=== PATIENT | female | born 1935 | race Caucasian/White ===

== ENCOUNTER 2018-07-11 10:52 | Outpatient (CLI) | payer OTHER ==
[~2018-07-11] VITALS: Ht 162.6 cm; Wt 81.6 kg
[2018-07-11 12:11] LABS: BASOPHILS % (AUTO) 0.5 % (0-1); EOSINOPHILS # (AUTO) 0.2 X10'3 (0-0.9); EOSINOPHILS % (AUTO) 2.2 % (0-6); MEAN CORPUSCULAR HEMOGLOBIN 28.8 PG (27.0-31.0); MEAN CORPUSCULAR HGB CONC 33.9 % (33.0-36.5); MEAN CORPUSCULAR VOLUME 85.2 FL (78-98); MEAN PLATELET VOLUME 7.7 FL (7.4-10.4); MONOCYTES # (AUTO) 0.5 X10'3 (0-0.9); MONOCYTES % (AUTO) 6.7 % (2-12); NEUTROPHILS # (AUTO) 4.4 X10'3 (1.8-7.7); NEUTROPHILS % (AUTO) 62.6 % (42-75); PRE OP HEMOGLOBIN 14.6 g/dL (12.0-16.0); PRE OP PLATELET COUNT 231 X10'3 (140-440); RED BLOOD COUNT 5.04 X10'6 (4.20-5.60)
[2018-07-11 12:24] LABS: ALBUMIN 3.5 G/DL (3.4-5.0); ALBUMIN/GLOBULIN RATIO 1.1 (1.1-1.5); ALKALINE PHOSPHATASE 73 IU/L (46-116); BLOOD UREA NITROGEN 15 MG/DL (7-18); BUN/CREATININE RATIO 15.3 (6.6-38.0); CALCIUM 9.1 MG/DL (8.5-10.1); CHLORIDE 100 MMOL/L (99-107); CREATININE 0.98 MG/DL (0.40-0.90); PRE OP ALT 21 U/L (30-65); PRE OP ANION GAP 5 (8-16); PRE OP AST 18 U/L (10-37); PRE OP BILIRUB, TOTAL 0.4 MG/DL (0.0-1.0); PRE OP GLUCOSE 100 MG/DL (70-104); PRE OP POTASSIUM 3.9 MMOL/L (3.4-5.1); PRE OP SODIUM 133 MMOL/L (135-145); TOTAL CARBON DIOXIDE 27.7 MMOL/L (24-32); TOTAL PROTEIN 6.7 G/DL (6.4-8.2); eGFR 55 ML/MIN
[2018-07-11] MEDS ORDERED: FAMO-128 PO (12:41)
[2018-07-11] MEDS ORDERED: HYDR25TA4 PO (12:41)
[2018-07-11] MEDS ORDERED: SIME62.5 PO (12:41)
[2018-07-15] MEDS ORDERED: ringers solution, lacted 1,000 ML IV SCH (05:00)
[2018-07-15] MEDS ORDERED: famotidine 20mg tablet PO ONE (05:30)
[2018-07-15] MEDS ORDERED: Cefazolin 2GM/50ML dext iso,osmotic IVPB IV ONE (05:30)
== END 2018-07-11 23:59 | disposition home or self-care (01) ==
LOC: PRE-OP 10:52 → EDSTATUS 07-15 14:15
PROVIDERS: ATTEND Surgery
DX: Z01.812 Encounter for preprocedural laboratory examination (principal); K64.4 Residual hemorrhoidal skin tags; Z13.6 Encounter for screening for cardiovascular disorders
CPT/HCPCS: 36415; 80053; 85025; 93005; J0690; J7120

== ENCOUNTER 2018-11-07 14:40 | Emergency (ER) | payer OTHER ==
[~2018-11-07] VITALS: Ht 165.1 cm; Wt 65.0 kg
[~2018-11-07 14:40] MED LIST: FAMO-128 PO; HYDR25TA4 PO; SIME62.5 PO
[2018-11-07 15:34] LABS: BASOPHILS % (AUTO) 0.5 % (0-1); EOSINOPHILS # (AUTO) 0.1 X10'3 (0-0.9); EOSINOPHILS % (AUTO) 1.6 % (0-6); HEMATOCRIT 38.5 % (35.0-45.0); HEMOGLOBIN 12.9 g/dl (12.0-16.0); LYMPHOCYTES # (AUTO) 1.8 X10'3 (1.1-4.8); LYMPHOCYTES % (AUTO) 22.2 % (21-51); MEAN CORPUSCULAR HEMOGLOBIN 27.8 PG (27.0-31.0); MEAN CORPUSCULAR HGB CONC 33.5 % (33.0-36.5); MEAN CORPUSCULAR VOLUME 82.9 FL (78-98); MEAN PLATELET VOLUME 7.8 FL (7.4-10.4); MONOCYTES # (AUTO) 0.5 X10'3 (0-0.9); MONOCYTES % (AUTO) 6.2 % (2-12); NEUTROPHILS # (AUTO) 5.6 X10'3 (1.8-7.7); NEUTROPHILS % (AUTO) 69.5 % (42-75); PLATELET COUNT 269 X10'3 (140-440); RED BLOOD COUNT 4.64 X10'6 (4.20-5.60); RED CELL DISTRIBUTION WIDTH 14.8 % (11.5-14.5); WHITE BLOOD COUNT 8.1 X10'3 (4.5-11.0)
[2018-11-07 15:50] LABS: ALANINE AMINOTRANSFERASE 15 U/L (12-78); ALBUMIN 3.3 G/DL (3.4-5.0); ALBUMIN/GLOBULIN RATIO 1.1 (1.1-1.5); ALKALINE PHOSPHATASE 115 IU/L (46-116); ASPARTATE AMINO TRANSFERASE 18 U/L (10-37); BILIRUBIN,TOTAL 0.5 MG/DL (0.1-1.0); BLOOD UREA NITROGEN 11 MG/DL (7-18); BUN/CREATININE RATIO 13.6 (6.6-38.0); CALCIUM 8.9 MG/DL (8.5-10.1); CREATININE 0.81 MG/DL (0.40-0.90); GLUCOSE 104 MG/DL (70-104); TOTAL CARBON DIOXIDE 27.2 MMOL/L (24-32); TOTAL PROTEIN 6.3 G/DL (6.4-8.2); eGFR 68 ML/MIN
[2018-11-07 15:51] LABS: INR 1.1 INR; PARTIAL THROMBOPLASTIN TIME 29 SECONDS (22-32); PROTHROMBIN TIME 10.7 SECONDS (9.0-12.0)
[2018-11-07 15:56] LABS: ANION GAP 9 (8-16); CHLORIDE 90 MMOL/L (99-107); SODIUM 126 MMOL/L (135-145)
[2018-11-07] MEDS ORDERED: potassium Cl 20 mEq SR tablet PO STA (16:16)
[2018-11-07 17:02] LABS: CLARITY,URINE CLEAR (Clear); COLOR,URINE YELLOW (Yellow); GLUCOSE, URINE NEGATIVE (Neg); KETONES,URINE NEGATIVE (Neg); LEUKOCYTE ESTERASE ,URINE SMALL (Neg); NITRITES, URINE NEGATIVE (Neg); OCCULT BLOOD,URINE NEGATIVE (Neg); PROTEIN,URINE NEGATIVE (Neg); UROBILINOGEN,URINE 0.2 E.U/dL (0.2-1.0)
[2018-11-07 17:08] LABS: UA COLLECTION TYPE CLN CATCH MIDSTREAM
[2018-11-07 17:09] LABS: BACTERIA,URINE NONE SEEN /HPF (Neg); MUCUS STRANDS NONE SEEN /LPF (Neg); RBC,URINE 0-2 /HPF (0-2); SQUAMOUS EPITHELIAL CELL,UR FEW /LPF (FEW); WBC,URINE 0-4 /HPF (0-4)
[2018-11-07 17:38] VITALS: BP 157/78
== END 2018-11-07 17:41 | disposition home or self-care (01) ==
LOC: ER 14:41
DX: R07.89 Other chest pain (principal); I10 Essential (primary) hypertension; Z85.038 Personal history of other malignant neoplasm of large intestine; Z88.2 Allergy status to sulfonamides; Z88.1 Allergy status to other antibiotic agents; Z79.899 Other long term (current) drug therapy
CPT/HCPCS: 36415; 71045; 80053; 81001; 84484; 85025; 85610; 85730; 93005; 99284

== ENCOUNTER 2018-12-31 06:57 | Emergency (ER) | payer OTHER ==
[~2018-12-31] VITALS: Ht 162.6 cm; Wt 75.5 kg
[2018-12-31 07:33] VITALS: BP 146/83
[2018-12-31] MEDS ORDERED: bacitracin 15gm ointment TP SCH (08:00)
--- NOTE | 2018-12-31 08:00 | NUR ---
pt out to ct with product development consultant via wheelchair
--- NOTE | 2018-12-31 08:24 | NUR ---
PT RETURNS FROM CT
== END 2018-12-31 09:00 | disposition home or self-care (01) ==
LOC: ER 06:58
DX: S16.1XXA Strain of muscle, fascia and tendon at neck level, initial encounter (principal); S00.83XA Contusion of other part of head, initial encounter; I10 Essential (primary) hypertension; Z88.1 Allergy status to other antibiotic agents; Z88.2 Allergy status to sulfonamides; Z79.899 Other long term (current) drug therapy; W01.198A Fall on same level from slipping, tripping and stumbling with subsequent striking against other object, initial encounter; Y93.02 Activity, running; Y92.89 Other specified places as the place of occurrence of the external cause; Y99.8 Other external cause status
CPT/HCPCS: 70450; 93005; 99284

== ENCOUNTER 2020-10-27 13:17 | Emergency (ER) | payer MEDICARE, OTHER ==
[~2020-10-27] VITALS: Ht 165.1 cm; Wt 60.0 kg
[~2020-10-27 13:17] MED LIST changes: +LIDOcaine 1% 30ml preserv. free vial ONE
[2020-10-27 13:26] VITALS: BP 126/62
[2020-10-27] MEDS ORDERED: ondansetron 4mg rapidly disintigrating tab PO ONE (16:00)
[2020-10-27] MEDS ORDERED: HYDROcodone/acetaminophen 5mg/325mg tablet PO ONE (16:00)
[2020-10-27] MEDS ORDERED: HYDR-3965 PO (17:00)
[2020-10-27] MEDS ORDERED: ONDA4TAB6 PO (17:00)
== END 2020-10-27 18:19 | disposition home or self-care (01) ==
LOC: ER 13:18
DX: S42.402A Unspecified fracture of lower end of left humerus, initial encounter for closed fracture (principal); S01.511A Laceration without foreign body of lip, initial encounter; S09.93XA Unspecified injury of face, initial encounter; M25.522 Pain in left elbow; I10 Essential (primary) hypertension; J45.909 Unspecified asthma, uncomplicated; Z85.038 Personal history of other malignant neoplasm of large intestine; Z88.2 Allergy status to sulfonamides; Z88.1 Allergy status to other antibiotic agents; Z79.899 Other long term (current) drug therapy; W19.XXXA Unspecified fall, initial encounter; Y93.89 Activity, other specified; Y92.89 Other specified places as the place of occurrence of the external cause; Y99.8 Other external cause status
CPT/HCPCS: 12011; 29105; 40650; 73080; 99284; J2001

== ENCOUNTER 2021-03-20 08:53 | Emergency (ER) | payer MEDICARE ==
[~2021-03-20] VITALS: Ht 162.6 cm; Wt 61.6 kg
[~2021-03-20 08:53] MED LIST changes: -LIDOcaine 1% 30ml preserv. free vial ONE; +ONDA4TAB6 PO
--- NOTE | 2021-03-20 09:30 | NUR ---
PATIENT REPORTS BEING DIAGNOSED WITH COLORECTAL CANCER BY DR RIZZO 3 YEARS AGO. PATIENT CHOSE NATREOPATHIC TREATMENT. PATIENT REPORTS CHOOSING NOT TO BE STAGED. PATIENT DOES NOT HAVE AN ONCOLOGIST. PATIENT'S PMD IS DR RIOS AT [facility] HER NATREOPATH. 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 SHE IS HERE TO FIND OUT "WHERE SHE IS WITH HER CANCER" AND CONTIUED RECTAL BLEEDING. HER PMD HAD ORDERED AT CT SCAN BUT PATIENT DID NOT GO DUE TO HER PERSISTENT RECTAL BLEEDING. PATIENT IS WEARING DEPENDS AND WIPES AND PADS BROUGHT INTO ROOM REPORT TO TADEO GONZALEZ RN
[2021-03-20 09:35] LABS: BASOPHILS % (AUTO) 0.7 % (0-1); EOSINOPHILS # (AUTO) 0.1 X10'3 (0-0.9); HEMATOCRIT 33.6 % (35.0-45.0); HEMOGLOBIN 10.9 g/dl (12.0-16.0); LYMPHOCYTES # (AUTO) 1.4 X10'3 (1.1-4.8); LYMPHOCYTES % (AUTO) 22.4 % (21-51); MEAN CORPUSCULAR HEMOGLOBIN 25.4 PG (27.0-31.0); MEAN CORPUSCULAR HGB CONC 32.5 g/dL (33.0-36.5); MEAN CORPUSCULAR VOLUME 78.2 FL (78-98); MEAN PLATELET VOLUME 7.1 FL (7.4-10.4); MONOCYTES # (AUTO) 0.5 X10'3 (0-0.9); MONOCYTES % (AUTO) 7.3 % (2-12); NEUTROPHILS # (AUTO) 4.3 X10'3 (1.8-7.7); NEUTROPHILS % (AUTO) 68.6 % (42-75); PLATELET COUNT 323 X10'3 (140-440); RED CELL DISTRIBUTION WIDTH 18.2 % (11.5-14.5); WHITE BLOOD COUNT 6.3 X10'3 (4.5-11.0)
[2021-03-20 09:50] LABS: ALANINE AMINOTRANSFERASE 11 U/L (12-78); ALBUMIN 2.7 G/DL (3.4-5.0); ALBUMIN/GLOBULIN RATIO 0.7 (1.1-1.5); ALKALINE PHOSPHATASE 140 IU/L (46-116); ANION GAP 9 (8-16); ASPARTATE AMINO TRANSFERASE 23 U/L (10-37); BILIRUBIN,TOTAL 0.3 MG/DL (0.1-1.0); BLOOD UREA NITROGEN 14 MG/DL (7-18); BUN/CREATININE RATIO 26.4 (6.6-38.0); CALCIUM 8.6 MG/DL (8.5-10.1); CHLORIDE 100 MMOL/L (99-107); CREATININE 0.53 MG/DL (0.40-0.90); GLUCOSE 107 MG/DL (70-104); POTASSIUM 3.6 MMOL/L (3.5-5.1); SODIUM 136 MMOL/L (135-145); TOTAL CARBON DIOXIDE 27.2 MMOL/L (24-32); TOTAL PROTEIN 6.4 G/DL (6.4-8.2); eGFR > 90 ML/MIN
[2021-03-20 09:53] LABS: CLARITY,URINE CLOUDY (Clear); COLOR,URINE YELLOW (Yellow); GLUCOSE, URINE NEGATIVE (Neg); KETONES,URINE NEGATIVE (Neg); LEUKOCYTE ESTERASE ,URINE MODERATE (Neg); NITRITES, URINE NEGATIVE (Neg); OCCULT BLOOD,URINE LARGE (Neg); PROTEIN,URINE NEGATIVE (Neg); UROBILINOGEN,URINE 0.2 E.U/dL (0.2-1.0)
[2021-03-20 09:54] LABS: UA COLLECTION TYPE CLN CATCH MIDSTREAM
[2021-03-20 09:58] LABS: SQUAMOUS EPITHELIAL CELL,UR FEW /LPF (FEW)
[2021-03-20 09:59] LABS: BACTERIA,URINE 2+ /HPF (Neg); RBC,URINE TNTC /HPF (0-2)
[2021-03-20] MEDS ORDERED: dexamethasone sod phosphate 10mg/ml inj IV STA (10:17)
[2021-03-20] MEDS ORDERED: normal saline 1000ML IV soln IVB ONE (10:20)
[2021-03-20] MEDS ORDERED: diphenhydrAMINE 50 mg/ml inj IV ONE (10:20)
[2021-03-20] MEDS ORDERED: iohexol 300mg/ml 100ml inj. ONE (10:35)
[2021-03-20] MEDS ORDERED: CEPH-585 PO (10:42)
[2021-03-20] MEDS ORDERED: PHEN51CR24 RC (10:42)
--- NOTE | 2021-03-20 10:42 | NUR ---
PT TO CT VIA [employer] MANAGER SUPPLIER NOTIFIED THAT PT HAS BEEN PREMEDICATED FOR IV CONTRAST.
[2021-03-20] MEDS ORDERED: normal saline 1000ml 1,000 ML IV ONE (11:40)
[2021-03-20 13:28] VITALS: BP 173/91
== END 2021-03-20 13:31 | disposition home or self-care (01) ==
LOC: ER 08:54
DX: C79.9 Secondary malignant neoplasm of unspecified site (principal); N39.0 Urinary tract infection, site not specified; K64.4 Residual hemorrhoidal skin tags; K80.70 Calculus of gallbladder and bile duct without cholecystitis without obstruction; R15.9 Full incontinence of feces; R10.31 Right lower quadrant pain; R10.32 Left lower quadrant pain; R30.0 Dysuria; I10 Essential (primary) hypertension; J45.909 Unspecified asthma, uncomplicated; Z85.038 Personal history of other malignant neoplasm of large intestine; Z88.1 Allergy status to other antibiotic agents; Z88.2 Allergy status to sulfonamides; Z79.2 Long term (current) use of antibiotics; Z79.899 Other long term (current) drug therapy
CPT/HCPCS: 36415; 71260; 74177; 80053; 81001; 85025; 96361; 96374; 96375; 99285; J1100; J1200; J7030; Q9967

== ENCOUNTER → 2021-06-27 | Emergency (ER) | payer MEDICARE ==
[~2021-06-27] VITALS: Ht 162.6 cm; Wt 63.6 kg
[~2021-06-27] MED LIST changes: +CEPH-585 PO; +PHEN51CR24 RC; +diphenhydrAMINE 50 mg/ml inj IV ONE; +iohexol 300mg/ml 100ml inj. ONE; +methylPREDNISolone sod succ 125mg/2ml vial IV ONE
[2021-06-27 14:14] LABS: BASOPHILS % (AUTO) 0.6 % (0-1); EOSINOPHILS # (AUTO) 0.1 X10'3 (0-0.9); EOSINOPHILS % (AUTO) 0.7 % (0-6); HEMATOCRIT 33.4 % (35.0-45.0); HEMOGLOBIN 10.7 g/dl (12.0-16.0); LYMPHOCYTES # (AUTO) 1.5 X10'3 (1.1-4.8); MEAN CORPUSCULAR HEMOGLOBIN 25.3 PG (27.0-31.0); MEAN CORPUSCULAR HGB CONC 32.2 g/dL (33.0-36.5); MEAN CORPUSCULAR VOLUME 78.6 FL (78-98); MEAN PLATELET VOLUME 7.5 FL (7.4-10.4); MONOCYTES # (AUTO) 0.5 X10'3 (0-0.9); MONOCYTES % (AUTO) 6.6 % (2-12); NEUTROPHILS # (AUTO) 4.9 X10'3 (1.8-7.7); NEUTROPHILS % (AUTO) 71.1 % (42-75); PLATELET COUNT 294 X10'3 (140-440); RED BLOOD COUNT 4.25 X10'6 (4.20-5.60); RED CELL DISTRIBUTION WIDTH 17.3 % (11.5-14.5)
[2021-06-27 14:17] LABS: CLARITY,URINE SLIGHTLY CLOUDY (Clear); COLOR,URINE YELLOW (Yellow); GLUCOSE, URINE NEGATIVE (Neg); KETONES,URINE NEGATIVE (Neg); LEUKOCYTE ESTERASE ,URINE SMALL (Neg); NITRITES, URINE NEGATIVE (Neg); OCCULT BLOOD,URINE LARGE (Neg); PH,URINE 6.5 (4.8-8.0); PROTEIN,URINE NEGATIVE (Neg); UROBILINOGEN,URINE 0.2 E.U/dL (0.2-1.0)
[2021-06-27 14:24] LABS: UA COLLECTION TYPE CLN CATCH MIDSTREAM
[2021-06-27 14:25] LABS: ALANINE AMINOTRANSFERASE 11 U/L (12-78); ALBUMIN/GLOBULIN RATIO 0.8 (1.1-1.5); ALKALINE PHOSPHATASE 161 IU/L (46-116); ANION GAP 11 (8-16); ASPARTATE AMINO TRANSFERASE 22 U/L (10-37); BILIRUBIN,TOTAL 0.4 MG/DL (0.1-1.0); BLOOD UREA NITROGEN 12 MG/DL (7-18); BUN/CREATININE RATIO 19.4 (6.6-38.0); CALCIUM 8.7 MG/DL (8.5-10.1); CHLORIDE 96 MMOL/L (99-107); CREATININE 0.62 MG/DL (0.40-0.90); GLUCOSE 97 MG/DL (70-104); POTASSIUM 3.1 MMOL/L (3.5-5.1); SODIUM 134 MMOL/L (135-145); TOTAL CARBON DIOXIDE 27.3 MMOL/L (24-32); TOTAL PROTEIN 6.7 G/DL (6.4-8.2); eGFR > 90 ML/MIN
[2021-06-27 14:35] LABS: RBC,URINE 50-100 /HPF (0-2); SQUAMOUS EPITHELIAL CELL,UR FEW /LPF (FEW); TRANSITIONAL EPI CELLS,URINE MANY /HPF
[2021-06-27 14:37] LABS: BACTERIA,URINE 1+ /HPF (Neg)
[2021-06-27 17:18] VITALS: BP 163/85
== END | disposition home or self-care (01) ==
LOC: ER 11:13
DX: N93.9 Abnormal uterine and vaginal bleeding, unspecified (principal); C21.8 Malignant neoplasm of overlapping sites of rectum, anus and anal canal; C78.7 Secondary malignant neoplasm of liver and intrahepatic bile duct; I10 Essential (primary) hypertension; J45.909 Unspecified asthma, uncomplicated; Z88.1 Allergy status to other antibiotic agents; Z86.2 Personal history of diseases of the blood and blood-forming organs and certain disorders involving the immune mechanism; Z74.01 Bed confinement status; Z88.2 Allergy status to sulfonamides; Z90.710 Acquired absence of both cervix and uterus; Z79.2 Long term (current) use of antibiotics; Z79.899 Other long term (current) drug therapy
CPT/HCPCS: 36415; 74177; 80053; 81001; 85025; 85610; 87077; 87088; 87186; 96374; 96375; 99285; J1200; J2930; Q9967

== ENCOUNTER 2021-07-26 14:06 | Inpatient (IN) | payer MEDICARE ==
[~2021-07-26] VITALS: Ht 162.6 cm; Wt 68.7 kg
[~2021-07-26 14:06] MED LIST changes: -diphenhydrAMINE 50 mg/ml inj IV ONE; -iohexol 300mg/ml 100ml inj. ONE; -methylPREDNISolone sod succ 125mg/2ml vial IV ONE
[2021-07-26] MEDS ORDERED: normal saline 1000ML IV soln IVB ONE (14:35)
[2021-07-26 14:55] LABS: BASOPHILS % (AUTO) 0.4 % (0-1); EOSINOPHILS % (AUTO) 0.4 % (0-6); HEMATOCRIT 28.6 % (35.0-45.0); HEMOGLOBIN 9.7 g/dl (12.0-16.0); LYMPHOCYTES # (AUTO) 1.2 X10'3 (1.1-4.8); MEAN CORPUSCULAR VOLUME 76.6 FL (78-98); MEAN PLATELET VOLUME 6.6 FL (7.4-10.4); MONOCYTES # (AUTO) 0.7 X10'3 (0-0.9); MONOCYTES % (AUTO) 7.7 % (2-12); NEUTROPHILS # (AUTO) 7.3 X10'3 (1.8-7.7); NEUTROPHILS % (AUTO) 78.5 % (42-75); PLATELET COUNT 340 X10'3 (140-440); RED BLOOD COUNT 3.73 X10'6 (4.20-5.60); RED CELL DISTRIBUTION WIDTH 18.1 % (11.5-14.5); WHITE BLOOD COUNT 9.3 X10'3 (4.5-11.0)
[2021-07-26 15:16] LABS: ALANINE AMINOTRANSFERASE 13 U/L (12-78); ALBUMIN 2.4 G/DL (3.4-5.0); ALBUMIN/GLOBULIN RATIO 0.7 (1.1-1.5); ALKALINE PHOSPHATASE 117 IU/L (46-116); ANION GAP 10 (8-16); ASPARTATE AMINO TRANSFERASE 20 U/L (10-37); BILIRUBIN,TOTAL 0.4 MG/DL (0.1-1.0); BLOOD UREA NITROGEN 13 MG/DL (7-18); BUN/CREATININE RATIO 13.8 (6.6-38.0); CALCIUM 8.3 MG/DL (8.5-10.1); CHLORIDE 94 MMOL/L (99-107); CREATININE 0.94 MG/DL (0.40-0.90); GLUCOSE 120 MG/DL (70-104); SODIUM 132 MMOL/L (135-145); TOTAL CARBON DIOXIDE 28.1 MMOL/L (24-32); TOTAL PROTEIN 5.9 G/DL (6.4-8.2); TROPONIN I < 0.04 NG/ML (0.0-0.05); eGFR 57 ML/MIN
[2021-07-26 15:21] LABS: POTASSIUM 2.9 MMOL/L (3.5-5.1)
[2021-07-26] MEDS ORDERED: POTASSIUM BICARB 20meq eff tab 20 MEQ TABLET.EFF PO ONE (15:50)
[2021-07-26] MEDS ORDERED: [UNRECOGNIZED DRUG - REMARK] PO (16:22)
[2021-07-26 16:23] LABS: CLARITY,URINE CLEAR (Clear); COLOR,URINE YELLOW (Yellow); GLUCOSE, URINE NEGATIVE (Neg); KETONES,URINE NEGATIVE (Neg); LEUKOCYTE ESTERASE ,URINE NEGATIVE (Neg); NITRITES, URINE NEGATIVE (Neg); OCCULT BLOOD,URINE NEGATIVE (Neg); PH,URINE 6.5 (4.8-8.0); PROTEIN,URINE NEGATIVE (Neg); UROBILINOGEN,URINE 0.2 E.U/dL (0.2-1.0)
[2021-07-26 16:27] LABS: UA COLLECTION TYPE NON-SPECIFIED
[2021-07-26] MEDS ORDERED: magnesium 4gm in 100ml NS 100 ML IV PRN (17:20)
[2021-07-26] MEDS ORDERED: magnesium 2GM in 50ml NS 50 ML IV PRN (17:20)
[2021-07-26] MEDS ORDERED: acetaminophen 325mg tablet PO PRN (17:20)
[2021-07-26] MEDS ORDERED: potassium Cl 40MEQ/1/2NS 520ml 520 ML IV PRN ×2 (17:20)
[2021-07-26] MEDS ORDERED: ondansetron/PF 4mg/2ml inj IV PRN (17:20)
[2021-07-26] MEDS ORDERED: PERFLUTREN PROTEIN-A MICROSPHR (Optison) 0.22 MG/ML 3ML VIAL IV ONE (17:20)
[2021-07-26] MEDS ORDERED: magnesium Cl slow-release 64mg tablet PO PRN (17:20)
[2021-07-26] MEDS ORDERED: potassium Cl 20 mEq SR tablet PO PRN (17:20)
[2021-07-26] MEDS: normal saline 1000ml 1,000 ML IV SCH (19:02)
[2021-07-26] MEDS: K and/or MAG REPLACEMENT MC SCH (20:00)
--- NOTE | 2021-07-26 21:30 | NUR ---
received report from [facility] RN had the oppertunity to ask questions and will assume pot care once arrival to the floor.
--- NOTE | 2021-07-26 21:55 | NUR ---
pt arrived to unit. VSS, tele monitor placed and functioning. Pt A&O and able to make needs known. Called MD for pts c/o of right knee pain r/t fall that brought her into the hospital. Recieved order for tylenol 6 Addendum: 07/27/21 at 0058 by Luke Baig RN note saved before finished typing..... received order for Tylenol 650mg po Q6 prn pain and requested xray for right knee which is swollen and sensitive to touch and movement. Received order for xray will be obtained in am.
[2021-07-26 22:00] VITALS: BP 145/59
[2021-07-27] MEDS: acetaminophen 325mg tablet PO PRN ×3 (00:26→18:45)
[2021-07-27] MEDS: potassium Cl 20 mEq SR tablet PO PRN ×4 (01:49→17:43)
[2021-07-27 01:55] LABS: OCCULT BLOOD STOOL POSITIVE (Neg)
[2021-07-27 02:00] VITALS: BP 121/53
--- NOTE | 2021-07-27 02:45 | NUR ---
DR Davis ordered Occult stool this shift after midnight. Stool sample was collected and sent to the lab, results were called to MD Darby with + occult results. No new orders received at this time. Pt does have colorectal cancer currently with homeopathic methods as her course of treatment for her cancer.
[2021-07-27] MEDS: normal saline 1000ml 1,000 ML IV SCH ×3 (03:41→23:20)
[2021-07-27 06:00] VITALS: BP 132/57
[2021-07-27 06:08] LABS: ALBUMIN 2.2 G/DL (3.4-5.0); ANION GAP 7 (8-16); BLOOD UREA NITROGEN 10 MG/DL (7-18); BUN/CREATININE RATIO 15.9 (6.6-38.0); CHLORIDE 102 MMOL/L (99-107); CREATININE 0.63 MG/DL (0.40-0.90); GLUCOSE 99 MG/DL (70-104); MAGNESIUM 2.2 MG/DL (1.5-2.4); SODIUM 139 MMOL/L (135-145); TOTAL CARBON DIOXIDE 30.5 MMOL/L (24-32); eGFR 90 ML/MIN
[2021-07-27 06:11] LABS: BASOPHILS % (AUTO) 0.4 % (0-1); EOSINOPHILS # (AUTO) 0.1 X10'3 (0-0.9); HEMATOCRIT 27.9 % (35.0-45.0); HEMOGLOBIN 9.1 g/dl (12.0-16.0); LYMPHOCYTES % (AUTO) 12.7 % (21-51); MEAN CORPUSCULAR HEMOGLOBIN 25.2 PG (27.0-31.0); MEAN CORPUSCULAR HGB CONC 32.6 g/dL (33.0-36.5); MEAN CORPUSCULAR VOLUME 77.3 FL (78-98); MEAN PLATELET VOLUME 6.7 FL (7.4-10.4); MONOCYTES # (AUTO) 0.7 X10'3 (0-0.9); MONOCYTES % (AUTO) 8.6 % (2-12); NEUTROPHILS # (AUTO) 6.2 X10'3 (1.8-7.7); NEUTROPHILS % (AUTO) 77.3 % (42-75); PLATELET COUNT 316 X10'3 (140-440); RED BLOOD COUNT 3.61 X10'6 (4.20-5.60); RED CELL DISTRIBUTION WIDTH 18.8 % (11.5-14.5)
--- NOTE | 2021-07-27 06:15 | NUR ---
Patient in room PCU 3018. I have received report from MICHA Sommers and had the opportunity to ask questions and assume patient care.
[2021-07-27 06:23] LABS: % IRON SATURATION 11 % (11-46); IRON 20 UG/DL (49-151); TOTAL IRON BINDING CAPACITY 178 UG/DL (259-388)
[2021-07-27 06:29] LABS: POTASSIUM 2.9 MMOL/L (3.5-5.1)
--- NOTE | 2021-07-27 06:50 | NUR ---
Problems reprioritized. Patient report given, questions answered & plan of care reviewed with Candi MUSE.
[2021-07-27 06:52] LABS: ANISOCYTOSIS 2+; MICROCYTOSIS 1+; PLATELET ESTIMATE NORMAL
--- NOTE | 2021-07-27 07:05 | NUR ---
Critical Value PAGER ID: [phone] MESSAGE: Gretchen 3018A, Deborah Jasso. Critical K 2.9. Replacing per protocol. Thanks, Candi [phone]
[2021-07-27] MEDS: K and/or MAG REPLACEMENT MC SCH ×2 (08:00→20:00)
[2021-07-27 11:00] VITALS: BP 122/52
--- NOTE | 2021-07-27 14:18 | NUR ---
Paged Dr Davis PAGER ID: [phone] MESSAGE: Room 3018A, Deborah Jasso. Pt requesting restless leg medication. Thanks, Candi [phone]
[2021-07-27 15:00] VITALS: BP 144/60
[2021-07-27 18:00] VITALS: BP 142/54
--- NOTE | 2021-07-27 18:00 | NUR ---
Patient in room PCU 3018. I have received report from Delta MUSE and had the opportunity to ask questions and assume patient care.
--- NOTE | 2021-07-27 18:10 | NUR ---
Problems reprioritized. Patient report given, questions answered & plan of care reviewed with MICHA Dow.
--- NOTE | 2021-07-27 18:11 | NUR ---
Report received from MICHA Butler not MICHA Sommers
--- NOTE | 2021-07-27 20:15 | NUR ---
Problems reprioritized. Patient report given, questions answered & plan of care reviewed with JUSTIN MUSE.
[2021-07-27 22:00] VITALS: BP 122/53
--- NOTE | 2021-07-28 01:49 | NUR ---
Patient in room ORTHO 4021. I have received report from Paloma CENTRIFUGAL CASTING MACHINE TENDER and had the opportunity to ask questions and assume patient care.
[2021-07-28 06:00] VITALS: BP 145/64
[2021-07-28 06:12] LABS: BASOPHILS % (AUTO) 0.4 % (0-1); EOSINOPHILS # (AUTO) 0.1 X10'3 (0-0.9); EOSINOPHILS % (AUTO) 1.5 % (0-6); HEMATOCRIT 29.8 % (35.0-45.0); HEMOGLOBIN 9.6 g/dl (12.0-16.0); LYMPHOCYTES # (AUTO) 1.3 X10'3 (1.1-4.8); LYMPHOCYTES % (AUTO) 16.6 % (21-51); MEAN CORPUSCULAR HEMOGLOBIN 25.6 PG (27.0-31.0); MEAN CORPUSCULAR HGB CONC 32.3 g/dL (33.0-36.5); MEAN PLATELET VOLUME 6.8 FL (7.4-10.4); MONOCYTES # (AUTO) 0.6 X10'3 (0-0.9); MONOCYTES % (AUTO) 8.1 % (2-12); NEUTROPHILS # (AUTO) 5.9 X10'3 (1.8-7.7); NEUTROPHILS % (AUTO) 73.4 % (42-75); PLATELET COUNT 367 X10'3 (140-440); RED BLOOD COUNT 3.77 X10'6 (4.20-5.60); RED CELL DISTRIBUTION WIDTH 18.8 % (11.5-14.5)
[2021-07-28 06:26] LABS: ALBUMIN 2.2 G/DL (3.4-5.0); ANION GAP 6 (8-16); BLOOD UREA NITROGEN 16 MG/DL (7-18); CALCIUM 8.1 MG/DL (8.5-10.1); CHLORIDE 106 MMOL/L (99-107); CREATININE 0.64 MG/DL (0.40-0.90); GLUCOSE 91 MG/DL (70-104); MAGNESIUM 1.9 MG/DL (1.5-2.4); POTASSIUM 4.6 MMOL/L (3.5-5.1); SODIUM 140 MMOL/L (135-145); TOTAL CARBON DIOXIDE 27.9 MMOL/L (24-32); eGFR 89 ML/MIN
--- NOTE | 2021-07-28 06:39 | NUR ---
Problems reprioritized. Patient report given, questions answered & plan of care reviewed with Imelda MUSE.
[2021-07-28 08:00] VITALS: BP_SYST 116; BP_SYST 126; BP_SYST 98; BP_DIAS 50; BP_DIAS 55; BP_DIAS 58
[2021-07-28] MEDS: K and/or MAG REPLACEMENT MC SCH ×2 (08:00→19:36)
--- NOTE | 2021-07-28 08:28 | NUR ---
spoke to pt who expressed frustration regarding not being able to sleep. Wants to be able to sleep and not disturbed.She is also very "modest" and doesn't want male caregivers. Needs Q 2 turns. Assessment complete. Pt has red excoriated philippe area, cleansing and ointment provided. Will make sure pt has opportunity to get some rest.
[2021-07-28] MEDS: normal saline 1000ml 1,000 ML IV SCH ×3 (09:20→23:56)
[2021-07-28 10:00] VITALS: BP 116/58
--- NOTE | 2021-07-28 10:14 | NUR ---
PAGER ID: [phone] MESSAGE: Imelda 0- Deborah Guerrero- she has chronic rectal pain. Can we give her a X1 dose rectal pain suppository? Anusol? I would like to get her up to sit but she is painful
--- NOTE | 2021-07-28 10:30 | NUR ---
PAGER ID: [phone] MESSAGE: Imelda [phone]- Hansa Guerrero the orthostatics were positive.
[2021-07-28] MEDS: ROPINIRole 0.25mg tablet PO SCH ×2 (14:05→20:31)
[2021-07-28 18:00] VITALS: BP 138/65
[2021-07-28 22:00] VITALS: BP 139/81
--- NOTE | 2021-07-29 06:08 | NUR ---
Problems reprioritized. Patient report given, questions answered & plan of care reviewed with MICHA Becerra.
--- NOTE | 2021-07-29 06:10 | NUR ---
Patient in room ORTHO 4021. I have received report from MICHA Berry and had the opportunity to ask questions and assume patient care.
[2021-07-29 06:48] VITALS: BP 149/73
[2021-07-29 06:53] LABS: BASOPHILS % (AUTO) 0.4 % (0-1); EOSINOPHILS # (AUTO) 0.1 X10'3 (0-0.9); EOSINOPHILS % (AUTO) 1.6 % (0-6); HEMATOCRIT 26.9 % (35.0-45.0); HEMOGLOBIN 8.9 g/dl (12.0-16.0); LYMPHOCYTES # (AUTO) 1.1 X10'3 (1.1-4.8); LYMPHOCYTES % (AUTO) 13.5 % (21-51); MEAN CORPUSCULAR VOLUME 78.8 FL (78-98); MEAN PLATELET VOLUME 6.8 FL (7.4-10.4); MONOCYTES # (AUTO) 0.6 X10'3 (0-0.9); MONOCYTES % (AUTO) 7.3 % (2-12); NEUTROPHILS # (AUTO) 6.5 X10'3 (1.8-7.7); NEUTROPHILS % (AUTO) 77.2 % (42-75); PLATELET COUNT 326 X10'3 (140-440); RED BLOOD COUNT 3.42 X10'6 (4.20-5.60); RED CELL DISTRIBUTION WIDTH 19.2 % (11.5-14.5); WHITE BLOOD COUNT 8.5 X10'3 (4.5-11.0)
[2021-07-29 07:03] LABS: ANION GAP 7 (8-16); BLOOD UREA NITROGEN 16 MG/DL (7-18); BUN/CREATININE RATIO 26.2 (6.6-38.0); CHLORIDE 108 MMOL/L (99-107); CREATININE 0.61 MG/DL (0.40-0.90); GLUCOSE 97 MG/DL (70-104); POTASSIUM 4.2 MMOL/L (3.5-5.1); SODIUM 141 MMOL/L (135-145); eGFR > 90 ML/MIN
[2021-07-29] MEDS: ROPINIRole 0.25mg tablet PO SCH (07:52)
[2021-07-29] MEDS: K and/or MAG REPLACEMENT MC SCH (08:00)
--- NOTE | 2021-07-29 09:55 | NUR ---
Dr Davis in to see patient. Aware that patient has had vaginal bleeding and H&H is 8.9/26.9 prior was 9.6/29.8. No new orders.
[2021-07-29 10:00] VITALS: BP 130/62
--- NOTE | 2021-07-29 10:05 | NUR ---
Dr Davis aware orthostatic vitals have no been done and states they do not need to be done.
--- NOTE | 2021-07-29 11:54 | NUR ---
Patient and daughter stating very concerned that patient being dc and patient is saying she is weak and unable to care for herself. senior portfolio manager Alysha and this nurse have been in to speak to patient and daughter discussing discharge plan. Patient will have home health services and patient was ok by PT to be discharge once medically cleared. Patient told by CM that she will not be able to get to send authorization for rehab until saturday as there is no openings as well as insurance authorization. Patient instructed to call 911 or come to ER if needed. Discussed discharge instructions with patient and patient verbalizes understanding of dc. Patient requesting from MD to have order for requip as it has been effective in treating her restless leg. Dr. Davis notified. Patient ready for dc and daughter to grain picker.
[2021-07-29] MEDS ORDERED: ROPI0.2540 PO (12:14)
--- NOTE | 2021-07-29 12:33 | NUR ---
Patient dc'd with all personal belongings. Escorted out in wheelchair accompanied by x2 pct.
== END 2021-07-29 12:05 | disposition home or self-care (01) | DRG 641 ==
LOC: ER 14:06 → ED HOLD 18:53 → PCU 3S 22:10 → ORTHO 4S 07-27 21:00
PROVIDERS: ADMIT Internal Medicine; ATTEND Internal Medicine
DX: E87.6 Hypokalemia (principal); C19 Malignant neoplasm of rectosigmoid junction; E87.1 Hypo-osmolality and hyponatremia; R55 Syncope and collapse; D63.8 Anemia in other chronic diseases classified elsewhere; G89.29 Other chronic pain; Z20.822 Contact with and (suspected) exposure to COVID-19; I10 Essential (primary) hypertension; J45.909 Unspecified asthma, uncomplicated; G25.81 Restless legs syndrome; K62.89 Other specified diseases of anus and rectum; W18.2XXA Fall in (into) shower or empty bathtub, initial encounter; N93.9 Abnormal uterine and vaginal bleeding, unspecified; S09.90XA Unspecified injury of head, initial encounter; T50.2X5A Adverse effect of carbonic-anhydrase inhibitors, benzothiadiazides and other diuretics, initial encounter; Y92.091 Bathroom in other non-institutional residence as the place of occurrence of the external cause; Y99.8 Other external cause status; Y93.E1 Activity, personal bathing and showering; Z88.2 Allergy status to sulfonamides; Z88.8 Allergy status to other drugs, medicaments and biological substances; Z91.041 Radiographic dye allergy status
CPT/HCPCS: 36415; 70450; 71045; 73564; 80048; 80053; 81003; 82272; 83540; 83550; 83735; 84132; 84484; 85008; 85025; 87081; 87635; 93005; 93306; 93880; 96360; 96361; 97116; 97161; 97530; 99285; C9803; G0378; J7030

== ENCOUNTER 2021-09-17 08:56 | Inpatient (IN) | payer MEDICARE ==
[~2021-09-17] VITALS: Ht 167.6 cm; Wt 49.9 kg
[~2021-09-17 08:56] MED LIST changes: -CEPH-585 PO; -FAMO-128 PO; -HYDR25TA4 PO; -ONDA4TAB6 PO; -PHEN51CR24 RC; +ROPI0.2540 PO; -SIME62.5 PO; +[UNRECOGNIZED DRUG - REMARK] PO
[2021-09-17] MEDS ORDERED: HYDROcodone/acetaminophen 5mg/325mg tablet PO ONE ×2 (10:30→13:40)
[2021-09-17 11:53] LABS: CLARITY,URINE CLEAR (Clear); COLOR,URINE YELLOW (Yellow); GLUCOSE, URINE NEGATIVE (Neg); KETONES,URINE NEGATIVE (Neg); LEUKOCYTE ESTERASE ,URINE SMALL (Neg); NITRITES, URINE NEGATIVE (Neg); OCCULT BLOOD,URINE SMALL (Neg); PH,URINE 6.5 (4.8-8.0); PROTEIN,URINE NEGATIVE (Neg); UA COLLECTION TYPE FOLEY CATH; UROBILINOGEN,URINE 0.2 E.U/dL (0.2-1.0)
[2021-09-17 11:58] LABS: EOSINOPHILS % (AUTO) 0.2 % (0-6); HEMOGLOBIN 9.5 g/dl (12.0-16.0); MEAN CORPUSCULAR HEMOGLOBIN 25.8 PG (27.0-31.0); MONOCYTES # (AUTO) 0.4 X10'3 (0-0.9); RED CELL DISTRIBUTION WIDTH 20.1 % (11.5-14.5); WHITE BLOOD COUNT 5.4 X10'3 (4.5-11.0)
[2021-09-17 11:58] LABS: BACTERIA,URINE 1+ /HPF (Neg); MUCUS STRANDS NONE SEEN /LPF (Neg); SQUAMOUS EPITHELIAL CELL,UR FEW /LPF (FEW); WBC,URINE 0-4 /HPF (0-4)
[2021-09-17 12:00] LABS: BASOPHILS % (AUTO) 0.2 % (0-1); HEMATOCRIT 29.4 % (35.0-45.0); LYMPHOCYTES # (AUTO) 0.8 X10'3 (1.1-4.8); LYMPHOCYTES % (AUTO) 15.6 % (21-51); MEAN CORPUSCULAR HGB CONC 32.2 g/dL (33.0-36.5); MEAN CORPUSCULAR VOLUME 80.2 FL (78-98); MEAN PLATELET VOLUME 7.4 FL (7.4-10.4); MONOCYTES % (AUTO) 7.5 % (2-12); NEUTROPHILS # (AUTO) 4.1 X10'3 (1.8-7.7); NEUTROPHILS % (AUTO) 76.5 % (42-75); PLATELET COUNT 292 X10'3 (140-440); RED BLOOD COUNT 3.67 X10'6 (4.20-5.60)
[2021-09-17 12:07] LABS: PARTIAL THROMBOPLASTIN TIME 27 SECONDS (22-32)
[2021-09-17 12:09] LABS: ALANINE AMINOTRANSFERASE 11 U/L (12-78); ALBUMIN 2.4 G/DL (3.4-5.0); ALBUMIN/GLOBULIN RATIO 0.7 (1.1-1.5); ALKALINE PHOSPHATASE 126 IU/L (46-116); ANION GAP 10 (8-16); ASPARTATE AMINO TRANSFERASE 28 U/L (10-37); BILIRUBIN,TOTAL 0.4 MG/DL (0.1-1.0); BLOOD UREA NITROGEN 12 MG/DL (7-18); BUN/CREATININE RATIO 18.5 (6.6-38.0); CALCIUM 7.9 MG/DL (8.5-10.1); CHLORIDE 103 MMOL/L (99-107); CREATININE 0.65 MG/DL (0.40-0.90); GLUCOSE 86 MG/DL (70-104); LIPASE < 50 U/L (73-393); MAGNESIUM 2.3 MG/DL (1.5-2.4); POTASSIUM 3.6 MMOL/L (3.5-5.1); SODIUM 138 MMOL/L (135-145); TOTAL PROTEIN 5.7 G/DL (6.4-8.2); eGFR 87 ML/MIN
[2021-09-17 13:14] LABS: ANISOCYTOSIS 3+; HYPOCHROMASIA 1+; PLATELET ESTIMATE NORMAL; POLYCHROMASIA FEW
[2021-09-17] MEDS ORDERED: morphine 2 MG/ML inj. syringe IV PRN (13:45)
[2021-09-17] MEDS: potassium cl 20mEq in 1/2 NS 1,000 ML IV SCH ×2 (13:45→20:54)
[2021-09-17] MEDS ORDERED: potassium Cl 20 mEq SR tablet PO PRN ×2 (13:45)
[2021-09-17] MEDS ORDERED: magnesium 4gm in 100ml NS 100 ML IV PRN (13:45)
[2021-09-17] MEDS ORDERED: magnesium 2GM in 50ml NS 50 ML IV PRN (13:45)
[2021-09-17] MEDS ORDERED: potassium Cl 40MEQ/1/2NS 520ml 520 ML IV PRN ×2 (13:45)
[2021-09-17] MEDS ORDERED: magnesium Cl slow-release 64mg tablet PO PRN (13:45)
[2021-09-17] MEDS ORDERED: acetaminophen 325mg tablet PO PRN (13:45)
[2021-09-17] MEDS ORDERED: magnesium hydroxide 30ml (MOM) UD suspension PO PRN (13:45)
[2021-09-17] MEDS ORDERED: magnesium citrate 296ml oral solution PO ONE (14:00)
[2021-09-17] MEDS: piperacillin/tazo 3.375gm/50ml 50 ML IV SCH (14:20)
[2021-09-17] MEDS ORDERED: HYDR25TA4 PO (14:52)
[2021-09-17] MEDS ORDERED: SPIR25TA5 PO (14:52)
[2021-09-17] MEDS ORDERED: ROPI0.2534 PO (14:52)
[2021-09-17] MEDS: K and/or MAG REPLACEMENT MC SCH (17:04)
--- NOTE | 2021-09-17 19:56 | NUR ---
Patient in room ED 15. I have received report from mattress and boxsprings supervisor and had the opportunity to ask questions and will assume patient care upon arrival to the room.. Addendum: 09/17/21 at 1957 by Arcelia Mathew RN Amended: Links added.
[2021-09-17 20:00] VITALS: BP 145/81
[2021-09-17 20:05] VITALS: BP 145/81
[2021-09-17] MEDS: docusate sod 100mg capsule PO SCH (20:53)
[2021-09-17] MEDS: morphine 2 MG/ML inj. syringe IV PRN (22:55)
--- NOTE | 2021-09-17 22:58 | NUR ---
pt c/o pain medicated with morphine 2mg for this and resless leg syndrome. pharmacy notified x2 to get it.
[2021-09-17] MEDS: ROPINIRole 0.25mg tablet PO SCH (23:10)
[2021-09-18] VITALS: BP 163/78
[2021-09-18] MEDS: piperacillin/tazo 3.375gm/50ml 50 ML IV SCH ×3 (00:10→16:44)
--- NOTE | 2021-09-18 00:29 | NUR ---
put on and off bedpan void 5cc urine appears to look like pus and blood. will bladder scan pt.
--- NOTE | 2021-09-18 02:00 | NUR ---
pt bladder scan c/o not feeling like she emptied bladder was getting urine 5-10cc on bedpan purulent dk red in color. bladder scanned for [address] Mann called and received order for gao cath.
[2021-09-18] MEDS ORDERED: LIDOcaine 2% 10ml TOPICAL JELLY (Urojet) TP ONE (02:15)
[2021-09-18] MEDS: morphine 2 MG/ML inj. syringe IV PRN ×2 (02:53→20:09)
--- NOTE | 2021-09-18 06:08 | NUR ---
message sent to Mercedes Nurse: Good Morning, room 349B needs darting. Thank you! Uma Med/Surg [phone]
[2021-09-18 06:11] LABS: HEMOGLOBIN 9.1 g/dl (12.0-16.0); MEAN CORPUSCULAR HEMOGLOBIN 26.1 PG (27.0-31.0)
[2021-09-18 06:15] LABS: BASOPHILS % (AUTO) 0.2 % (0-1); EOSINOPHILS % (AUTO) 0.7 % (0-6); LYMPHOCYTES % (AUTO) 16.7 % (21-51); MEAN CORPUSCULAR HGB CONC 32.6 g/dL (33.0-36.5); MEAN PLATELET VOLUME 7.5 FL (7.4-10.4); MONOCYTES # (AUTO) 0.6 X10'3 (0-0.9); MONOCYTES % (AUTO) 10.2 % (2-12); NEUTROPHILS # (AUTO) 4.3 X10'3 (1.8-7.7); NEUTROPHILS % (AUTO) 72.2 % (42-75); PLATELET COUNT 284 X10'3 (140-440); RED CELL DISTRIBUTION WIDTH 20.1 % (11.5-14.5)
--- NOTE | 2021-09-18 06:30 | NUR ---
Patient in room BRENDA 349. I have received report from MICHA Eaton and had the opportunity to ask questions and assume patient care.
[2021-09-18 06:35] LABS: ALANINE AMINOTRANSFERASE 10 U/L (12-78); ALBUMIN 2.3 G/DL (3.4-5.0); ALBUMIN/GLOBULIN RATIO 0.8 (1.1-1.5); ALKALINE PHOSPHATASE 120 IU/L (46-116); ANION GAP 9 (8-16); ASPARTATE AMINO TRANSFERASE 32 U/L (10-37); BILIRUBIN,TOTAL 0.5 MG/DL (0.1-1.0); BLOOD UREA NITROGEN 13 MG/DL (7-18); BUN/CREATININE RATIO 18.6 (6.6-38.0); CALCIUM 8.2 MG/DL (8.5-10.1); CHLORIDE 104 MMOL/L (99-107); CHOL/HDL RATIO 3.5 (0.00-4.99); CHOLESTEROL 167 MG/DL (0-200); GLUCOSE 71 MG/DL (70-104); HDL CHOLESTEROL 48 MG/DL (35-60); LDL CHOLESTEROL 98 MG/DL (50-100); MAGNESIUM 2.5 MG/DL (1.5-2.4); POTASSIUM 4.2 MMOL/L (3.5-5.1); SODIUM 137 MMOL/L (135-145); TOTAL CARBON DIOXIDE 24.4 MMOL/L (24-32); TOTAL PROTEIN 5.3 G/DL (6.4-8.2); TRIGLYCERIDES 90 MG/DL (20-135); eGFR 80 ML/MIN
[2021-09-18] MEDS: potassium cl 20mEq in 1/2 NS 1,000 ML IV SCH ×2 (06:47→16:52)
--- NOTE | 2021-09-18 06:58 | NUR ---
Patient in room BRENDA 349. I have received report from Arcelia MUSE and had the opportunity to ask questions and assume patient care.
--- NOTE | 2021-09-18 06:59 | NUR ---
Problems reprioritized. Patient report given, questions answered & plan of care reviewed with ALEXANDRE MUSE. Addendum: 09/18/21 at 0659 by Arcelia Mathew RN Amended: Links added.
[2021-09-18 08:00] VITALS: BP 146/72
[2021-09-18] MEDS ORDERED: enoxaparin 30mg/0.3ml syringe SUBCUT SCH (08:00)
[2021-09-18] MEDS: K and/or MAG REPLACEMENT MC SCH ×2 (08:00→20:00)
[2021-09-18] MEDS: ROPINIRole 0.25mg tablet PO SCH ×3 (08:20→20:08)
[2021-09-18] MEDS: docusate sod 100mg capsule PO SCH ×2 (08:21→20:08)
--- NOTE | 2021-09-18 08:54 | NUR ---
PAGER ID: [phone] MESSAGE: re: room 349B Romero Deborah Did you want pt to get Lovenox this a.m. H/H is 9.1/28.0 (down from 09/17 9.5/29.4). bleeding per rectum. Order for SCDs? thank you, Uma Med/Surg [phone] Will continue to monitor.
[2021-09-18] MEDS ORDERED: lactulose 20gm/30ml cup PO ONE ×2 (09:40→17:20)
[2021-09-18 09:47] LABS: ANISOCYTOSIS 3+; PLATELET ESTIMATE NORMAL
[2021-09-18 11:00] VITALS: BP 140/65
--- NOTE | 2021-09-18 11:29 | NUR ---
acting as assistant chief nursing officer, i reviewed student nurse charting
--- NOTE | 2021-09-18 12:01 | NUR ---
Problems reprioritized. Patient report given, questions answered & plan of care reviewed with MICHA Eaton.
--- NOTE | 2021-09-18 17:03 | NUR ---
PAGER ID: [phone] MESSAGE: RE: ROOM 349B, MYRIAM DEL ANGEL PATIENT HAS NOT HAD A BOWEL MOVEMENT YET. NO MORE BLOOD PER RECTUM THIS AFTERNOON. MAY I HAVE ORDER FOR SCDS? THANK YOU ALEXANDRE, MED/SURG [phone]
[2021-09-18] MEDS: mag hydrox/Alum hydrox/simeth 30ml oral suspension PO PRN (18:49)
--- NOTE | 2021-09-18 18:59 | NUR ---
Problems reprioritized. Patient report given, questions answered & plan of care reviewed with Arcelia MUSE.
--- NOTE | 2021-09-18 19:05 | NUR ---
Patient in room BRENDA 349. I have received report from ALEXANDRE MUSE and had the opportunity to ask questions and assume patient care. Addendum: 09/18/21 at 1905 by Arcelia Mathew RN Amended: Links added.
[2021-09-18 19:30] VITALS: BP 160/85
[2021-09-18] MEDS: lactobacillus rhamnosus 10,000 MMU CELLS/CAPSULE PO SCH (20:08)
[2021-09-19] VITALS: BP 149/69
--- NOTE | 2021-09-19 04:30 | NUR ---
had sent messages to pharmacy to get zosyn and called [facility]. med not on the floor. called to see if i could get it said it was on the way up.
[2021-09-19] MEDS: potassium cl 20mEq in 1/2 NS 1,000 ML IV SCH (04:43)
[2021-09-19] MEDS: ondansetron/PF 4mg/2ml inj IV PRN ×2 (04:44→21:12)
[2021-09-19] MEDS: morphine 2 MG/ML inj. syringe IV PRN (04:46)
--- NOTE | 2021-09-19 04:46 | NUR ---
pt threw up 25cc emesis brown in color, and inc small amount of stool. liquid stool appears as if some might be coming out of vaginal area besides rectum. pt has large bump on left labia approximately 4-5 cm in diameter. gao care done. pt medicated with Zofran for nausea and morphine for complaint of pain. pt had been given lactulose during the day Mom and Docusate sodium tonight. pt refused prune juice stating she can't tolerate anything sweet she had also earlier in evening been given Maalox for c/o heartburn.
[2021-09-19] MEDS: piperacillin/tazo 3.375gm/50ml 50 ML IV SCH ×3 (05:41→17:39)
[2021-09-19 06:18] LABS: BASOPHILS % (AUTO) 0.2 % (0-1); EOSINOPHILS % (AUTO) 0.1 % (0-6); HEMATOCRIT 28.4 % (35.0-45.0); HEMOGLOBIN 9.3 g/dl (12.0-16.0); LYMPHOCYTES # (AUTO) 0.6 X10'3 (1.1-4.8); LYMPHOCYTES % (AUTO) 8.7 % (21-51); MEAN CORPUSCULAR HEMOGLOBIN 25.9 PG (27.0-31.0); MEAN CORPUSCULAR HGB CONC 32.8 g/dL (33.0-36.5); MEAN PLATELET VOLUME 6.7 FL (7.4-10.4); MONOCYTES # (AUTO) 0.4 X10'3 (0-0.9); MONOCYTES % (AUTO) 6.2 % (2-12); NEUTROPHILS # (AUTO) 6.1 X10'3 (1.8-7.7); NEUTROPHILS % (AUTO) 84.8 % (42-75); PLATELET COUNT 316 X10'3 (140-440); RED CELL DISTRIBUTION WIDTH 19.5 % (11.5-14.5); WHITE BLOOD COUNT 7.1 X10'3 (4.5-11.0)
--- NOTE | 2021-09-19 06:30 | NUR ---
Problems reprioritized. Patient report given, questions answered & plan of care reviewed with JEFF MUSE. Addendum: 09/19/21 at 0715 by Arcelia Mathew RN Amended: Links added.
[2021-09-19 06:38] LABS: ALANINE AMINOTRANSFERASE 13 U/L (12-78); ALBUMIN 2.3 G/DL (3.4-5.0); ALBUMIN/GLOBULIN RATIO 0.7 (1.1-1.5); ALKALINE PHOSPHATASE 114 IU/L (46-116); ANION GAP 9 (8-16); ASPARTATE AMINO TRANSFERASE 30 U/L (10-37); BILIRUBIN,TOTAL 0.4 MG/DL (0.1-1.0); BLOOD UREA NITROGEN 14 MG/DL (7-18); CALCIUM 8.2 MG/DL (8.5-10.1); CHLORIDE 102 MMOL/L (99-107); CREATININE 0.61 MG/DL (0.40-0.90); GLUCOSE 91 MG/DL (70-104); MAGNESIUM 2.6 MG/DL (1.5-2.4); POTASSIUM 4.5 MMOL/L (3.5-5.1); SODIUM 134 MMOL/L (135-145); TOTAL CARBON DIOXIDE 22.9 MMOL/L (24-32); TOTAL PROTEIN 5.4 G/DL (6.4-8.2); eGFR > 90 ML/MIN
[2021-09-19 07:00] VITALS: BP 157/78
[2021-09-19] MEDS: K and/or MAG REPLACEMENT MC SCH ×2 (08:00→20:00)
[2021-09-19] MEDS: docusate sod 100mg capsule PO SCH ×2 (08:00→21:02)
[2021-09-19] MEDS: ROPINIRole 0.25mg tablet PO SCH ×3 (09:12→21:12)
[2021-09-19] MEDS: lactobacillus rhamnosus 10,000 MMU CELLS/CAPSULE PO SCH ×2 (09:12→21:02)
[2021-09-19 09:50] LABS: ANISOCYTOSIS 2+; MICROCYTOSIS 1+; PLATELET ESTIMATE NORMAL
--- NOTE | 2021-09-19 10:40 | NUR ---
Dr. Kulkarni was notified about the shift supervisor melting nurse reported that there was a stool coming out of patient's vagina. I told her I have not seen it yet myself. She told me to let her know if I see it because she is planning to send her home. I examined patient's vagina and seen some light brown mucosy material that might be a stool coming out of her vagina. Patient was passing gas while this happens, she has gao catheter that was intact and draining yellow urine. I paged Dr. Kulkarni requesting to call me back. Addendum: 09/19/21 at 1058 by Jason Choe RN Dr. Kulkarni was notified about the above note. She said she will hold the discharge for today but rather consult a surgeon.
[2021-09-19 11:00] VITALS: BP 141/73
--- NOTE | 2021-09-19 11:50 | NUR ---
Malnutrition consult: Pt admitted w/ colitis w/ hx of colorectal cancer from 3 years ago. Upon interview, pt does not think she has lost wt recently. BMI this admit shows 17.8 though current wt 49.9kg not scaled. Previous scaled wt from 08/14 was 68kg. Pt states she has not had any decline in appetite recently. Pt w/ avg 20% intake by 3 meals. Pt states she did not feel like eating yesterday d/t diarrhea though she feels better today. Pt observed at bedside w/ moderate temporal wasting, no edema noted. At this time pt does not meet minimum criteria for malnutrition. Will continue to monitor. Addendum: 09/19/21 at [address] Amended: Links added.
--- NOTE | 2021-09-19 15:24 | NUR ---
Paged Dr. Kulkarni PAGER ID: [phone] MESSAGE: Surgical Jason MUSE ext [phone]. RE: Deborah Jasso. Can we get order for PT eval? Also, just so you know she still leaking of liquid stool out of her vagina
--- NOTE | 2021-09-19 15:36 | NUR ---
Paged Dr. Kulkarni PAGER ID: [phone] MESSAGE: Surgical Jason MUSE ext [phone]. RE: Deborah Jasso. Just FYI patient is allergic to iodinated contrast. Do you still want CT scan with contrast?
--- NOTE | 2021-09-19 15:42 | NUR ---
Dr. Davis called me back after I paged Dr. Kulkarni about patient's allergy to iodinated contrast. She gave me order to cancel the order for CT scan at this time and that she will tell Dr. Kulkarni about this.
--- NOTE | 2021-09-19 17:09 | NUR ---
Dr. Kulkarni called gave me order to resume CT scan abdomen/pelvis with PO contrast and to have premedication Benadryl 25mg IV x [address]
[2021-09-19 20:00] VITALS: BP 169/75
[2021-09-19] MEDS ORDERED: diatr meglu/diatrizoate 30ml oral sol.-(3 dose) bottle PO SCH (21:00)
[2021-09-19] MEDS: diphenhydrAMINE 50 mg/ml inj IV SCH (21:01)
[2021-09-19] MEDS: mag hydrox/Alum hydrox/simeth 30ml oral suspension PO PRN (21:02)
[2021-09-19] MEDS: diatr meglu/diatrizoate 30ml oral sol.-(3 dose) bottle PO SCH (22:49)
[2021-09-20] VITALS: BP 161/74
[2021-09-20] MEDS: potassium cl 20mEq in 1/2 NS 1,000 ML IV SCH ×2 (01:08→01:45)
[2021-09-20] MEDS: piperacillin/tazo 3.375gm/50ml 50 ML IV SCH ×3 (01:08→16:00)
[2021-09-20] MEDS: diphenhydrAMINE 50 mg/ml inj IV SCH ×2 (05:55→08:44)
[2021-09-20 06:13] LABS: BASOPHILS % (AUTO) 0.1 % (0-1); EOSINOPHILS % (AUTO) 0 % (0-6); HEMATOCRIT 28.6 % (35.0-45.0); HEMOGLOBIN 9.2 g/dl (12.0-16.0); LYMPHOCYTES # (AUTO) 0.8 X10'3 (1.1-4.8); LYMPHOCYTES % (AUTO) 9.7 % (21-51); MEAN CORPUSCULAR HEMOGLOBIN 25.7 PG (27.0-31.0); MEAN CORPUSCULAR HGB CONC 32.2 g/dL (33.0-36.5); MEAN CORPUSCULAR VOLUME 79.8 FL (78-98); MEAN PLATELET VOLUME 7.3 FL (7.4-10.4); MONOCYTES # (AUTO) 0.6 X10'3 (0-0.9); MONOCYTES % (AUTO) 7.2 % (2-12); NEUTROPHILS # (AUTO) 6.5 X10'3 (1.8-7.7); PLATELET COUNT 313 X10'3 (140-440); RED BLOOD COUNT 3.59 X10'6 (4.20-5.60); RED CELL DISTRIBUTION WIDTH 19.3 % (11.5-14.5); WHITE BLOOD COUNT 7.8 X10'3 (4.5-11.0)
[2021-09-20 06:28] LABS: ALANINE AMINOTRANSFERASE 14 U/L (12-78); ALBUMIN 2.1 G/DL (3.4-5.0); ALBUMIN/GLOBULIN RATIO 0.7 (1.1-1.5); ALKALINE PHOSPHATASE 102 IU/L (46-116); ANION GAP 12 (8-16); ASPARTATE AMINO TRANSFERASE 29 U/L (10-37); BILIRUBIN,TOTAL 0.5 MG/DL (0.1-1.0); BLOOD UREA NITROGEN 16 MG/DL (7-18); BUN/CREATININE RATIO 22.5 (6.6-38.0); CALCIUM 8.2 MG/DL (8.5-10.1); CHLORIDE 98 MMOL/L (99-107); CREATININE 0.71 MG/DL (0.40-0.90); GLUCOSE 73 MG/DL (70-104); MAGNESIUM 2.6 MG/DL (1.5-2.4); POTASSIUM 4.7 MMOL/L (3.5-5.1); SODIUM 132 MMOL/L (135-145); TOTAL CARBON DIOXIDE 22.4 MMOL/L (24-32); TOTAL PROTEIN 5.1 G/DL (6.4-8.2); eGFR 79 ML/MIN
--- NOTE | 2021-09-20 06:32 | NUR ---
Problems reprioritized. Patient report given, questions answered & plan of care reviewed with MICHA Mercedes .
--- NOTE | 2021-09-20 06:35 | NUR ---
Patient in room BRENDA 349. I have received report from Mago MUSE and had the opportunity to ask questions and assume patient care.
[2021-09-20 07:00] VITALS: BP 157/68
[2021-09-20] MEDS: ROPINIRole 0.25mg tablet PO SCH (07:15)
[2021-09-20] MEDS: lactobacillus rhamnosus 10,000 MMU CELLS/CAPSULE PO SCH ×2 (07:15→20:00)
[2021-09-20] MEDS: diatr meglu/diatrizoate 30ml oral sol.-(3 dose) bottle PO SCH ×2 (07:16→09:47)
[2021-09-20] MEDS: docusate sod 100mg capsule PO SCH ×2 (07:20→20:00)
[2021-09-20] MEDS: K and/or MAG REPLACEMENT MC SCH (08:00)
[2021-09-20 08:59] LABS: TOTAL CELLS COUNTED 100
[2021-09-20 09:00] LABS: ANISOCYTOSIS 2+; HYPERSEGMENTED NEUTROPHILS FEW; MICROCYTOSIS 1+; PLATELET ESTIMATE NORMAL
[2021-09-20 09:01] LABS: SMUDGE CELLS FEW
[2021-09-20] MEDS ORDERED: diphenhydrAMINE 50 mg/ml inj IV ONE (10:00)
--- NOTE | 2021-09-20 10:47 | NUR ---
Dr. Medina approached me at the nurses' station. He said he just talked to the patient and that patient decided to be DNR with comfort care. He said he will put the order.
[2021-09-20 14:05] VITALS: BP 149/68
[2021-09-20] MEDS ORDERED: LORazepam 2 mg/ml vial IV PRN (15:45)
[2021-09-20] MEDS ORDERED: morphine ORAL 5MG/0.25 ML (Conc. morphine) oral syringe PO PRN (15:45)
--- NOTE | 2021-09-20 16:19 | NUR ---
Paged Dr. Medina PAGER ID: [phone] MESSAGE: Surgical Jason RN ext [phone]. RE: Deborah Jasso. Do you still want Zosyn IV antonino given for this patient? She is on comfort care already
--- NOTE | 2021-09-20 16:30 | NUR ---
Patient refused the Zosyn, she states "I dont' need it!"
[2021-09-20] MEDS: morphine 10mg/0.5ml (conc. morphine) oral syringe PO PRN (17:40)
--- NOTE | 2021-09-20 18:44 | NUR ---
Problems reprioritized. Patient report given, questions answered & plan of care reviewed with Mago MUSE.
[2021-09-20 20:00] VITALS: BP 155/70
[2021-09-20] MEDS ORDERED: ROPINIRole 0.25mg tablet PO SCH (20:00)
[2021-09-21] VITALS: BP 137/66
--- NOTE | 2021-09-21 06:29 | NUR ---
Problems reprioritized. Patient report given, questions answered & plan of care reviewed with MICHA De Guzman.
--- NOTE | 2021-09-21 06:45 | NUR ---
Patient in room BRENDA 349. I have received report from MICHA Mercedes and had the opportunity to ask questions and assume patient care.
[2021-09-21] MEDS: docusate sod 100mg capsule PO SCH ×2 (08:00→19:58)
[2021-09-21] MEDS ORDERED: HYDROchlorothiazide 12.5mg capsule PO SCH (08:00)
[2021-09-21] MEDS ORDERED: spironolactone 25 MG tablet PO SCH (08:00)
[2021-09-21] MEDS: lactobacillus rhamnosus 10,000 MMU CELLS/CAPSULE PO SCH ×2 (08:00→20:18)
[2021-09-21] MEDS: ROPINIRole 0.25mg tablet PO SCH ×3 (11:08→20:18)
[2021-09-21] MEDS: morphine 10mg/0.5ml (conc. morphine) oral syringe PO PRN (11:14)
--- NOTE | 2021-09-21 13:15 | NUR ---
Noted pt has been made DNR w/ comfort care per EMR. [facility] 09/20. Will continue to follow. Rec: 1. bowel care per comfort measures Addendum: 09/21/21 at [address] Amended: Links added.
[2021-09-21] MEDS: pantoprazole 40 MG vial IV SCH ×2 (13:56→20:17)
[2021-09-21] MEDS: morphine 2 MG/ML inj. syringe IV PRN (14:02)
--- NOTE | 2021-09-21 18:34 | NUR ---
Problems reprioritized. Patient report given, questions answered & plan of care reviewed with MICHA Mercedes.
[2021-09-21 20:00] VITALS: BP 134/63
--- NOTE | 2021-09-22 06:11 | NUR ---
Problems reprioritized. Patient report given, questions answered & plan of care reviewed with MICHA Shah .
--- NOTE | 2021-09-22 06:44 | NUR ---
Patient in room BRENDA 349. I have received report from Mago MUSE Traveler and had the opportunity to ask questions and assume patient care.
[2021-09-22] MEDS: morphine 2 MG/ML inj. syringe IV PRN ×5 (07:01→20:51)
[2021-09-22] MEDS: pantoprazole 40 MG vial IV SCH ×2 (07:04→20:50)
[2021-09-22] MEDS: ROPINIRole 0.25mg tablet PO SCH ×3 (07:04→20:50)
[2021-09-22] MEDS: lactobacillus rhamnosus 10,000 MMU CELLS/CAPSULE PO SCH ×2 (07:04→20:50)
[2021-09-22] MEDS: docusate sod 100mg capsule PO SCH ×2 (07:07→20:00)
[2021-09-22 08:00] VITALS: BP 153/68
--- NOTE | 2021-09-22 09:15 | NUR ---
PAGER ID: [phone] MESSAGE: Deborah Jasso 348B- Pt received 2mg of morphine Q4hr, PT states is not strong enough and she is in pain still 08/04. Can we please increase dose and can it be Q2HR if needed. Thank you Alyssa surgical [phone]
[2021-09-22 11:00] VITALS: BP 159/65
--- NOTE | 2021-09-22 12:17 | NUR ---
Student documentation: I have reviewed and agree with all interventions, assessments performed and documented by Rodri Sims [place] student.
--- NOTE | 2021-09-22 13:42 | NUR ---
PAGER ID: [phone] MESSAGE: Deborah Jasso 349B- Dr. Haddad said pt can be DC. Pt wants to know when because her ride is 2hrs away. Thank you. Alyssa Alejo [phone] Addendum: 09/22/21 at 1342 by Alyssa Frederick RN wrong pt
--- NOTE | 2021-09-22 18:05 | NUR ---
Problems reprioritized. Patient report given, questions answered & plan of care reviewed with Stanford Doss. Addendum: 09/22/21 at 1816 by Alyssa Frederick RN report given to Mago Doss.
[2021-09-22 20:00] VITALS: BP 126/61
[2021-09-23] MEDS: morphine 2 MG/ML inj. syringe IV PRN ×4 (03:11→16:27)
--- NOTE | 2021-09-23 06:35 | NUR ---
Problems reprioritized. Patient report given, questions answered & plan of care reviewed with MICHA Clancy.
--- NOTE | 2021-09-23 06:47 | NUR ---
Patient in room BRENDA 349. I have received report from Mago MUSE and had the opportunity to ask questions and assume patient care.
[2021-09-23] MEDS: ROPINIRole 0.25mg tablet PO SCH ×3 (07:29→20:26)
[2021-09-23] MEDS: pantoprazole 40 MG vial IV SCH ×2 (07:30→20:26)
[2021-09-23] MEDS: docusate sod 100mg capsule PO SCH ×2 (07:30→20:00)
[2021-09-23] MEDS: lactobacillus rhamnosus 10,000 MMU CELLS/CAPSULE PO SCH ×2 (07:36→20:26)
[2021-09-23 08:00] VITALS: BP 145/70
--- NOTE | 2021-09-23 17:18 | NUR ---
Pt has had a copious amount of stool from her vaginal and rectal canal. Approximately 15 large bowel movements today. Small-moderate amount of blood in stool. Patient had 600ml urine out of Orta today. Pt ate 75-100% of all meals today including snacks. Morphine has been very effective with managing patients pain today. Will continue to monitor
[2021-09-23 18:00] VITALS: BP 133/67
--- NOTE | 2021-09-23 18:47 | NUR ---
Problems reprioritized. Patient report given, questions answered & plan of care reviewed with Prudence RN.
--- NOTE | 2021-09-23 18:55 | NUR ---
Patient in room BRENDA 349. I have received report from MEGAN MUSE and had the opportunity to ask questions and assume patient care.
[2021-09-24] MEDS: morphine 2 MG/ML inj. syringe IV PRN ×2 (04:26→18:05)
--- NOTE | 2021-09-24 06:09 | NUR ---
Student documentation: I have reviewed and agree with all interventions, assessments performed and documented by CARLEY (STUDENT).
--- NOTE | 2021-09-24 06:10 | NUR ---
Student Medication Administration: For this medication-pass time frame, all medication were reviewed, dispensed, administered and documented per hospital policy by CARLEY (STUDENT).
--- NOTE | 2021-09-24 06:27 | NUR ---
Problems reprioritized. Patient report given, questions answered & plan of care reviewed with SUSIE MUSE.
[2021-09-24] MEDS: docusate sod 100mg capsule PO SCH ×2 (07:12→20:00)
[2021-09-24] MEDS: pantoprazole 40 MG vial IV SCH ×2 (07:57→21:21)
[2021-09-24] MEDS: ROPINIRole 0.25mg tablet PO SCH ×3 (07:58→21:21)
[2021-09-24] MEDS: lactobacillus rhamnosus 10,000 MMU CELLS/CAPSULE PO SCH ×2 (07:58→21:21)
[2021-09-24 11:00] VITALS: BP 148/65
[2021-09-24 18:00] VITALS: BP 131/59
--- NOTE | 2021-09-24 18:56 | NUR ---
Patient in room BRENDA 349. I have received report from MICHA Sanchez and had the opportunity to ask questions and assume patient care.
--- NOTE | 2021-09-24 19:08 | NUR ---
Pt report given to Chantel MUSE. All questions answered. Pt eating dinner at this time. Pleasant and no distress.
--- NOTE | 2021-09-25 06:36 | NUR ---
Problems reprioritized. Patient report given, questions answered & plan of care reviewed with MICHA Nevarez.
--- NOTE | 2021-09-25 06:43 | NUR ---
Patient in room BRENDA 349. I have received report from Geri and had the opportunity to ask questions and assume patient care.
[2021-09-25] MEDS: morphine 10mg/0.5ml (conc. morphine) oral syringe PO PRN ×3 (06:46→20:19)
[2021-09-25 07:00] VITALS: BP 134/67
[2021-09-25] MEDS: pantoprazole 40 MG vial IV SCH ×2 (07:10→20:18)
[2021-09-25] MEDS: ROPINIRole 0.25mg tablet PO SCH ×3 (07:11→20:19)
--- NOTE | 2021-09-25 07:20 | NUR ---
I have received report from NOC shift RN and had the opportunity to ask questions and assume patient care.
[2021-09-25] MEDS: docusate sod 100mg capsule PO SCH ×2 (08:00→20:19)
[2021-09-25] MEDS: lactobacillus rhamnosus 10,000 MMU CELLS/CAPSULE PO SCH ×2 (08:00→20:18)
--- NOTE | 2021-09-25 10:00 | NUR ---
PAGER ID: [phone] MESSAGE: [id number] Carlos Jasso who is comfort care. Can I increase her Roxanol to 10 mg Q2H? We also need a nurse to pronounce order as well. Geri [phone]
--- NOTE | 2021-09-25 10:56 | NUR ---
PAGER ID: [phone] MESSAGE: [id number] Donta Gomez I got a culture of the drainage of his leg, can I place an order for it? Geri [phone]
--- NOTE | 2021-09-25 11:13 | NUR ---
acting as clinical clinical nursing manager, i reviewed student nurse charting
[2021-09-25 11:54] VITALS: BP 154/70
--- NOTE | 2021-09-25 17:57 | NUR ---
Problems reprioritized. Patient report given, questions answered & plan of care reviewed with Geri MUSE.
--- NOTE | 2021-09-25 18:23 | NUR ---
Student documentation: I have reviewed all interventions, assessments performed and documented by Avis RICCI. Student Medication Administration: For all medication-pass', all medication were reviewed, dispensed, administered and documented per hospital policy by Avis RICCI. Problems reprioritized. Patient report given, questions answered & plan of care reviewed with Alis MUSE.
--- NOTE | 2021-09-25 18:49 | NUR ---
Patient in room BRENDA 349. I have received report from Geri MUSE and Avis RICCI and had the opportunity to ask questions and assume patient care.
[2021-09-26 00:22] VITALS: BP 128/60
[2021-09-26] MEDS: morphine 10mg/0.5ml (conc. morphine) oral syringe PO PRN ×3 (03:53→17:33)
--- NOTE | 2021-09-26 06:49 | NUR ---
Problems reprioritized. Patient report given, questions answered & plan of care reviewed with Vero MUSE.
[2021-09-26 08:00] VITALS: BP 124/54
[2021-09-26] MEDS: docusate sod 100mg capsule PO SCH ×2 (08:00→20:00)
[2021-09-26] MEDS: ROPINIRole 0.25mg tablet PO SCH ×3 (08:11→21:10)
[2021-09-26] MEDS: lactobacillus rhamnosus 10,000 MMU CELLS/CAPSULE PO SCH ×2 (08:11→21:10)
[2021-09-26] MEDS: pantoprazole 40 MG vial IV SCH ×2 (08:11→21:11)
--- NOTE | 2021-09-26 09:30 | NUR ---
Patient in room BRENDA 349. I have received report from ЮЛИЯ MUSE and had the opportunity to ask questions and assume patient care.
--- NOTE | 2021-09-26 18:31 | NUR ---
Problems reprioritized. Patient report given, questions answered & plan of care reviewed with Mago villarreal .
[2021-09-26 20:00] VITALS: BP 104/65
--- NOTE | 2021-09-27 06:22 | NUR ---
Problems reprioritized. Patient report given, questions answered & plan of care reviewed with MICHA Quiroga.
[2021-09-27 08:00] VITALS: BP 120/51
[2021-09-27] MEDS: docusate sod 100mg capsule PO SCH ×2 (08:00→20:00)
[2021-09-27] MEDS: ROPINIRole 0.25mg tablet PO SCH ×3 (08:34→21:25)
[2021-09-27] MEDS: lactobacillus rhamnosus 10,000 MMU CELLS/CAPSULE PO SCH ×2 (08:34→21:26)
[2021-09-27] MEDS: pantoprazole 40 MG vial IV SCH ×2 (08:35→21:25)
[2021-09-27] MEDS: morphine 10mg/0.5ml (conc. morphine) oral syringe PO PRN ×3 (08:53→21:48)
[2021-09-27 12:00] VITALS: BP 132/62
[2021-09-27 20:00] VITALS: BP 99/40
[2021-09-28] MEDS: morphine 10mg/0.5ml (conc. morphine) oral syringe PO PRN ×3 (03:15→21:35)
--- NOTE | 2021-09-28 06:17 | NUR ---
Problems reprioritized. Patient report given, questions answered & plan of care reviewed with MICHA Quiroga.
[2021-09-28 08:00] VITALS: BP 139/64
[2021-09-28] MEDS: docusate sod 100mg capsule PO SCH ×2 (08:00→20:00)
[2021-09-28] MEDS: ROPINIRole 0.25mg tablet PO SCH ×3 (08:25→21:35)
[2021-09-28] MEDS: pantoprazole 40 MG vial IV SCH ×2 (08:26→21:34)
[2021-09-28] MEDS: lactobacillus rhamnosus 10,000 MMU CELLS/CAPSULE PO SCH ×2 (08:26→21:34)
--- NOTE | 2021-09-28 08:53 | NUR ---
Reassessment: Pt with average 75% PO intake on regular diet. [facility] 09/27. Pt continues to be DNR with comfort care. Will continue to follow per LOS. Recommendations: 1. Bowel care per comfort care measures Addendum: 09/28/21 at [address] Amended: Links added.
[2021-09-28 20:00] VITALS: BP 113/57
[2021-09-29] MEDS: docusate sod 100mg capsule PO SCH ×2 (08:00→19:58)
[2021-09-29 08:13] VITALS: BP 126/80
[2021-09-29] MEDS: pantoprazole 40 MG vial IV SCH ×2 (08:14→20:04)
[2021-09-29] MEDS: ROPINIRole 0.25mg tablet PO SCH ×3 (08:15→20:39)
[2021-09-29] MEDS: lactobacillus rhamnosus 10,000 MMU CELLS/CAPSULE PO SCH ×2 (08:15→20:04)
[2021-09-29] MEDS: morphine 10mg/0.5ml (conc. morphine) oral syringe PO PRN ×2 (13:42→20:06)
[2021-09-29 18:00] VITALS: BP 138/60
--- NOTE | 2021-09-29 18:30 | NUR ---
Patient in room BRENDA 349. I have received report from Kimber and had the opportunity to ask questions and assume patient care.
[2021-09-29] MEDS: diphenhydrAMINE 25mg capsule PO PRN (20:05)
--- NOTE | 2021-09-30 06:20 | NUR ---
Problems reprioritized. Patient report given, questions answered & plan of care reviewed with Kimber MUSE.
--- NOTE | 2021-09-30 06:28 | NUR ---
Problems reprioritized. Patient report given, questions answered & plan of care reviewed with DEE MUSE.
[2021-09-30 07:00] VITALS: BP 133/61
[2021-09-30] MEDS: docusate sod 100mg capsule PO SCH ×2 (08:00→20:00)
[2021-09-30] MEDS: lactobacillus rhamnosus 10,000 MMU CELLS/CAPSULE PO SCH ×2 (11:32→20:39)
[2021-09-30] MEDS: pantoprazole 40 MG vial IV SCH ×2 (11:32→20:40)
[2021-09-30] MEDS: ROPINIRole 0.25mg tablet PO SCH ×3 (11:32→20:39)
[2021-09-30] MEDS: morphine 10mg/0.5ml (conc. morphine) oral syringe PO PRN ×2 (14:02→20:39)
[2021-09-30 18:00] VITALS: BP 136/63
--- NOTE | 2021-09-30 19:40 | NUR ---
Patient in room BRENDA 349. I have received report from DEE MUSE and had the opportunity to ask questions and assume patient care.
[2021-09-30] MEDS: diphenhydrAMINE 25mg capsule PO PRN (20:39)
--- NOTE | 2021-10-01 06:25 | NUR ---
Patient in room BRENDA 349. I have received report from Lina villarreal and had the opportunity to ask questions and assume patient care.
--- NOTE | 2021-10-01 06:25 | NUR ---
Problems reprioritized. Patient report given, questions answered & plan of care reviewed with JULIA MUSE.
--- NOTE | 2021-10-01 06:26 | NUR ---
Student documentation: I have reviewed and agree with all interventions, assessments performed and documented by CARLEY STONE.
--- NOTE | 2021-10-01 06:27 | NUR ---
Student Medication Administration: For this medication-pass time frame, all medication were reviewed, dispensed, administered and documented per hospital policy by CARLEY STONE.
[2021-10-01 06:36] VITALS: BP 112/46
[2021-10-01] MEDS: docusate sod 100mg capsule PO SCH ×2 (08:00→20:00)
[2021-10-01] MEDS: ROPINIRole 0.25mg tablet PO SCH ×3 (08:30→21:07)
[2021-10-01] MEDS: lactobacillus rhamnosus 10,000 MMU CELLS/CAPSULE PO SCH ×2 (08:30→21:07)
[2021-10-01] MEDS: pantoprazole 40 MG vial IV SCH ×2 (08:30→21:07)
[2021-10-01] MEDS: morphine 10mg/0.5ml (conc. morphine) oral syringe PO PRN ×3 (11:48→22:19)
--- NOTE | 2021-10-01 18:27 | NUR ---
Problems reprioritized. Patient report given, questions answered & plan of care reviewed with Divine villarreal.
--- NOTE | 2021-10-01 18:30 | NUR ---
Patient in room BRENDA 349. I have received report from Isaac MUSE and had the opportunity to ask questions and assume patient care.
[2021-10-01 19:00] VITALS: BP 143/65
[2021-10-01] MEDS: diphenhydrAMINE 25mg capsule PO PRN (22:18)
--- NOTE | 2021-10-02 00:13 | NUR ---
Patient doesn't really care for the dinners, so special ordered a tuna sandwich with chips. Addendum: 10/02/21 at 0013 by Divine Porter RN Amended: Links added.
--- NOTE | 2021-10-02 06:25 | NUR ---
Problems reprioritized. Patient report given, questions answered & plan of care reviewed with Isaac MUSE.
[2021-10-02 08:00] VITALS: BP 134/65
[2021-10-02] MEDS: docusate sod 100mg capsule PO SCH ×2 (08:00→20:00)
[2021-10-02] MEDS: pantoprazole 40 MG vial IV SCH ×2 (09:16→20:57)
[2021-10-02] MEDS: lactobacillus rhamnosus 10,000 MMU CELLS/CAPSULE PO SCH ×2 (09:18→20:57)
[2021-10-02] MEDS: ROPINIRole 0.25mg tablet PO SCH ×3 (09:18→20:57)
[2021-10-02] MEDS: morphine 10mg/0.5ml (conc. morphine) oral syringe PO PRN ×2 (17:55→20:58)
[2021-10-02 18:00] VITALS: BP 141/76
--- NOTE | 2021-10-02 18:40 | NUR ---
Problems reprioritized. Patient report given, questions answered & plan of care reviewed with Divine villarreal.
--- NOTE | 2021-10-02 18:45 | NUR ---
Patient in room BRENDA 349. I have received report from Isaac MUSE and had the opportunity to ask questions and assume patient care.
[2021-10-02] MEDS: diphenhydrAMINE 25mg capsule PO PRN (20:58)
--- NOTE | 2021-10-03 06:35 | NUR ---
Problems reprioritized. Patient report given, questions answered & plan of care reviewed with Vero MUSE.
[2021-10-03 07:00] VITALS: BP 116/62
[2021-10-03] MEDS: docusate sod 100mg capsule PO SCH ×2 (08:00→20:00)
[2021-10-03] MEDS: lactobacillus rhamnosus 10,000 MMU CELLS/CAPSULE PO SCH ×2 (10:20→21:11)
[2021-10-03] MEDS: pantoprazole 40 MG vial IV SCH ×2 (10:20→21:11)
[2021-10-03] MEDS: ROPINIRole 0.25mg tablet PO SCH ×3 (10:20→21:11)
[2021-10-03] MEDS: morphine 10mg/0.5ml (conc. morphine) oral syringe PO PRN ×2 (12:14→21:57)
--- NOTE | 2021-10-03 12:38 | NUR ---
PAGER ID: [phone] MESSAGE: VeroYen [phone] Re: Romero DietzC daughter Julio would like you to call her today when you have a chance please call me for phone number
[2021-10-03] MEDS ORDERED: furosemide 20MG tablet PO ONE (13:20)
[2021-10-03] MEDS ORDERED: hyoscyamine 0.125mg TAB.SUBL SL PRN (13:25)
--- NOTE | 2021-10-03 18:27 | NUR ---
Problems reprioritized. Patient report given, questions answered & plan of care reviewed with Cecilia MUSE.
[2021-10-03 20:00] VITALS: BP 119/54
[2021-10-03] MEDS: diphenhydrAMINE 25mg capsule PO PRN (21:18)
--- NOTE | 2021-10-04 06:37 | NUR ---
Patient in room BRENDA 349. I have received report from Tommy Prieto and had the opportunity to ask questions and assume patient care.
[2021-10-04 07:00] VITALS: BP 115/79
[2021-10-04] MEDS: docusate sod 100mg capsule PO SCH ×2 (07:50→19:59)
[2021-10-04] MEDS: lactobacillus rhamnosus 10,000 MMU CELLS/CAPSULE PO SCH ×2 (07:50→19:59)
[2021-10-04] MEDS: pantoprazole 40 MG vial IV SCH ×2 (07:50→20:00)
[2021-10-04] MEDS: furosemide 40mg tablet PO SCH (07:50)
[2021-10-04] MEDS: ROPINIRole 0.25mg tablet PO SCH ×3 (07:50→20:02)
--- NOTE | 2021-10-04 18:28 | NUR ---
Problems reprioritized. Patient report given, questions answered & plan of care reviewed with ROGER MUSE.
[2021-10-04 20:00] VITALS: BP 137/56
[2021-10-04] MEDS: diphenhydrAMINE 25mg capsule PO PRN (20:02)
[2021-10-04] MEDS: morphine 10mg/0.5ml (conc. morphine) oral syringe PO PRN (20:03)
[2021-10-05] MEDS: morphine 10mg/0.5ml (conc. morphine) oral syringe PO PRN ×2 (00:26→23:48)
--- NOTE | 2021-10-05 06:31 | NUR ---
Patient in room BRENDA 349. I have received report from MICHA Brooks and had the opportunity to ask questions and assume patient care.
[2021-10-05 08:00] VITALS: BP 124/60
[2021-10-05] MEDS: docusate sod 100mg capsule PO SCH (08:00)
--- NOTE | 2021-10-05 09:04 | NUR ---
Reassessment: Pt with average 30% PO intake on regular diet. [facility] 10/04. Pt continues to be DNR with comfort care. Will continue to follow per LOS. Recommendations: 1. Bowel care per comfort care measures Addendum: 10/05/21 at [address] Amended: Links added.
[2021-10-05] MEDS: pantoprazole 40 MG vial IV SCH ×2 (09:23→23:16)
[2021-10-05] MEDS: furosemide 40mg tablet PO SCH (09:24)
[2021-10-05] MEDS: lactobacillus rhamnosus 10,000 MMU CELLS/CAPSULE PO SCH ×2 (09:24→23:16)
[2021-10-05] MEDS: ROPINIRole 0.25mg tablet PO SCH ×3 (09:24→23:16)
--- NOTE | 2021-10-05 18:22 | NUR ---
Problems reprioritized. Patient report given, questions answered & plan of care reviewed with MICHA Rangel.
[2021-10-06] VITALS: BP 139/65
--- NOTE | 2021-10-06 06:31 | NUR ---
Problems reprioritized. Patient report given, questions answered & plan of care reviewed with Manjula.
[2021-10-06 07:00] VITALS: BP 119/53
--- NOTE | 2021-10-06 07:01 | NUR ---
Student documentation: I have reviewed and agree with all interventions, assessments performed and documented by Davida, Student RN.
--- NOTE | 2021-10-06 07:03 | NUR ---
Problems reprioritized. Patient report given, questions answered & plan of care reviewed with MICHA Fair.
[2021-10-06] MEDS ORDERED: FURO20TA4 PO (07:43)
[2021-10-06] MEDS ORDERED: furosemide 20MG tablet PO SCH (08:00)
[2021-10-06] MEDS: lactobacillus rhamnosus 10,000 MMU CELLS/CAPSULE PO SCH (08:34)
[2021-10-06] MEDS: ROPINIRole 0.25mg tablet PO SCH (08:34)
[2021-10-06] MEDS: pantoprazole 40 MG vial IV SCH (08:35)
--- NOTE | 2021-10-06 10:15 | NUR ---
Pt discharged to [facility] on hospice, with all belongings, via ambulance. Daughter at bedside when pt picked up by ambulance personnel. IV DC'd, cannula intact.
== END 2021-10-06 10:14 | disposition hospice, inpatient (51) | DRG 393 ==
LOC: ER 08:56 → ED HOLD 13:54 → SUR 3N 19:56
PROVIDERS: ADMIT Internal Medicine; ATTEND Internal Medicine
DX: N82.3 Fistula of vagina to large intestine (principal); E43 Unspecified severe protein-calorie malnutrition; K56.7 Ileus, unspecified; N39.0 Urinary tract infection, site not specified; C19 Malignant neoplasm of rectosigmoid junction; C78.00 Secondary malignant neoplasm of unspecified lung; C78.7 Secondary malignant neoplasm of liver and intrahepatic bile duct; Z68.1 Body mass index [BMI] 19.9 or less, adult; K52.9 Noninfective gastroenteritis and colitis, unspecified; K80.20 Calculus of gallbladder without cholecystitis without obstruction; Z66 Do not resuscitate; Z20.822 Contact with and (suspected) exposure to COVID-19; I10 Essential (primary) hypertension; K64.8 Other hemorrhoids; R60.0 Localized edema; K64.4 Residual hemorrhoidal skin tags; J45.909 Unspecified asthma, uncomplicated; D64.9 Anemia, unspecified; Z85.048 Personal history of other malignant neoplasm of rectum, rectosigmoid junction, and anus; Z51.5 Encounter for palliative care; Z79.899 Other long term (current) drug therapy; Z88.2 Allergy status to sulfonamides; Z88.7 Allergy status to serum and vaccine; Z88.1 Allergy status to other antibiotic agents; Z91.041 Radiographic dye allergy status
CPT/HCPCS: 36415; 71045; 74018; 74176; 80053; 80061; 81001; 83036; 83605; 83690; 83735; 84145; 85007; 85008; 85025; 85610; 85730; 87040; 87077; 87081; 87088; 87186; 87635; 99285; C9113; G0378; J1200; J2270; J2405; J2543; J3480; Q0163; Q9963